=== PATIENT | female | born 1955 | race Caucasian/White ===

== ENCOUNTER 2016-11-24 15:42 | Observation (INO) | payer OTHER ==
[2016-11-24] MEDS ORDERED: Sodium Chloride 0.9% 10 ML Syringe FLUSH PRN ×2 (15:58→19:19)
[2016-11-24] MEDS ORDERED: Sodium Chloride 0.9% 2.5 ML Syringe FLUSH PRN ×2 (15:58→19:19)
[2016-11-24] MEDS ORDERED: Famotidine 20 MG/2 ML SDV IVPUSH ONE (15:58)
[2016-11-24] MEDS ORDERED: Ketorolac 30 MG/ML SDV IVPUSH ONE (15:58)
[2016-11-24] MEDS ORDERED: Nitroglycerin 2% Oint 1 GM UD Packet TOP ONE (15:58)
[2016-11-24] MEDS ORDERED: Alum Hydrox/Mag Hydrox/Simeth 15 ML, Metoclopramide 5 MG, Lidocaine 2% 5 ML PO ONE ×3 (15:58)
--- NOTE | 2016-11-24 16:08 | EDM.PDOC ---
ED HPI GENERAL MEDICAL PROBLEM - General Chief Complaint: Cardiovascular Problem Stated Complaint: CHEST PAIN Time Seen by Provider: 11/24/16 16:01 Source of Information: Reports: Patient History Limitations: Reports: No Limitations - History of Present Illness INITIAL COMMENTS - FREE TEXT/NARRATIVE: History of present illness: [Patient is a 61-year-old female that presents to the emergency room today with complaints of shortness of breath, palpitations, "pulsation in my neck", and fatigue for the last several weeks. Reports that she saw her primary care provider Agueda Perales at [facility] and was told that she had a "block" and if her shortness of breath continued or worse and that she was to present to the emergency room. Her primary care provider did schedule for her to see Dr. Moore to have a stress test done. Her primary care provider was also monitoring her blood pressure which she reports has been running 140s over 80s but does not take any blood pressure medications for it at this time. Patient reports that this afternoon her symptoms did become worse and felt she needed to be evaluated. Patient is concerned that this could be cardiac related, TSH related, are due to a long flight that she had a week prior. Patient reports that her sister a month ago due to a heart attack. Has had several family members also I from cardiac related disease. Patient does have a past history of smoking. She reports she quit approximately 1-1/2 months ago. Was a half a pack to pack per day smoker for 30 years. Review of systems: As per history of present illness and below otherwise all systems reviewed and negative. Past medical history: As per history of present illness and as reviewed below otherwise noncontributory. Surgical history: As per history of present illness and as reviewed below otherwise noncontributory. Social history: No reported history of drug or alcohol abuse. Family history: As per history of present illness and as reviewed below otherwise noncontributory. Physical exam: Toxic appearing female. Appears teary-eyed. Able to speak in full sentences and answers questions appropriately. HEENT: Atraumatic, normocephalic, pupils reactive, negative for conjunctival pallor or scleral icterus, mucous membranes moist, throat clear, neck supple, nontender, trachea midline. Lungs: Clear to auscultation, breath sounds equal bilaterally, chest nontender. Heart: S1S2, regular, negative for clicks, rubs, + bilateral JVD. Abdomen: Soft, nondistended, nontender. Negative for masses or hepatosplenomegaly. Negative for costovertebral tenderness. Pelvis: Stable nontender. Genitourinary: Deferred. Rectal: Deferred. Extremities: Atraumatic, negative for cords or calf pain. Neurovascular unremarkable. Neuro: Awake, alert, oriented. Cranial nerves II through XII unremarkable. Cerebellum unremarkable. Motor and sensory unremarkable throughout. Exam nonfocal. 1600-consult to Dr. Moore will come and evaluate patient at bedside in ER. Dr. Moore here added a BNP will admit to Dr. Thakur Diagnostics: [BNP, CBC, CMP, troponin, UA, d-dimer, EKG, 2 view chest x-ray] Therapeutics: [IV, hospital monitor, O2, aspirin, GI cocktail, Pepcid] Impression: [Palpitations] Plan: [Admit to observation Dr. Thakur] Definitive disposition and diagnosis as appropriate pending reevaluation and review of above. Onset: Other (Several weeks) Duration: Other (Several weeks but worse today) Location: Reports: Neck Quality: Reports: Pressure Severity: Moderate Improves with: Reports: None Worsens with: Reports: None Associated Symptoms: Reports: Other (Shortness of breath/perceived) Throat Pain Score (Numeric/FACES): 4 - Related Data Allergies Allergy/AdvReac Type Severity Reaction Status Date / Time Penicillins Allergy Rash Verified 11/24/16 15:46 Home Meds: Home Meds Aspirin 1 tab 11/24/16 [History] ED ROS GENERAL - Review of Systems Review Of Systems: See Below (See history of present illness) ED EXAM, GENERAL - Physical Exam Exam: See Below (See history of present illness) EKG INTERPRETATION EKG Date: 11/24/16 Time: 15:45 Rhythm: Other (Left bundle branch block with ventricular trigeminy) Comparison: NA - No Prior EKG EKG Interpretation Comments: Dr. Moore consult to Course - Vital Signs Last Recorded V/S: Last Vital Signs Temp 36.4 C 11/24/16 15:46 Pulse 77 11/24/16 15:46 Resp 16 11/24/16 15:46 BP 163/92 H 11/24/16 15:46 Pulse Ox 97 11/24/16 15:46 - Orders/Labs/Meds Orders: Active Orders 24 hr Category Date Time Status EKG Documentation Completion [RC] STAT Care 11/24/16 15:59 Active Chest 2V [CR] Stat Exams 11/24/16 15:58 Taken B-TYPE NATRIURETIC PEPTIDE,BNP [CHEM] Stat Lab 11/24/16 17:53 Ordered Labs: Laboratory Tests 11/24/16 11/24/16 11/24/16 Range/Units 15:59 15:59 15:59 WBC 9.11 (4.0-11.0) K/uL RBC 4.65 (4.30-5.90) M/uL Hgb 14.3 (12.0-16.0) g/dL Hct 43.2 (36.0-46.0) % MCV 92.9 (80.0-98.0) fL MCH 30.8 (27.0-32.0) pg MCHC 33.1 (31.0-37.0) g/dL RDW Std Deviation 45.6 (28.0-62.0) fl RDW Coeff of Domenic 14 (11.0-15.0) % Plt Count 238 (150-400) K/uL MPV 9.60 (7.40-12.00) fL Neut % (Auto) 50.8 (48.0-80.0) % Lymph % (Auto) 36.3 (16.0-40.0) % Bath % (Auto) 11.1 (0.0-15.0) % Eos % (Auto) 1.5 (0.0-7.0) % Baso % (Auto) 0.3 (0.0-1.5) % Neut # (Auto) 4.6 (1.4-5.7) K/uL Lymph # (Auto) 3.3 H (0.6-2.4) K/uL Bath # (Auto) 1.0 H (0.0-0.8) K/uL Eos # (Auto) 0.1 (0.0-0.7) K/uL Baso # (Auto) 0.0 (0.0-0.1) K/uL Nucleated RBC % 0.0 /100WBC Nucleated RBCs # 0 K/uL D-Dimer, Quantitative 0.25 (0.0-0.52) mg/LFEU Sodium 141 (136-146) mmol/L Potassium 4.1 (3.5-5.1) mmol/L Chloride 108 (98-110) mmol/L Carbon Dioxide 24 (21-31) mmol/L BUN 15 (6.0-23.0) mg/dL Creatinine 0.7 (0.6-1.5) mg/dL Est Cr Clr Drug Dosing TNP Estimated GFR (MDRD) > 60.0 ml/min Glucose 93 (60-110) mg/dL Calcium 9.3 (8.8-10.8) mg/dL Total Bilirubin 0.4 (0.1-1.5) mg/dL AST 18 (5-40) IU/L ALT 24 (8-54) IU/L Alkaline Phosphatase 79 (40-150) Troponin I (0.0-0.29) NG/ML Total Protein 7.1 (6.0-8.0) g/dL Albumin 4.2 (3.4-4.8) g/dL Globulin 2.9 (2.0-3.5) g/dL Albumin/Globulin Ratio 1.4 (1.3-2.8) Amylase 37 (10-90) U/L Lipase 15 (7-80) U/L Urine Color Urine Appearance Urine pH (5.0-8.0) Ur Specific [place] (1.001-1.035) Urine Protein (NEGATIVE) mg/dL Urine Glucose (UA) (NEGATIVE) mg/dL Urine Ketones (NEGATIVE) mg/dL Urine Occult Blood (NEGATIVE) Urine Nitrite (NEGATIVE) Urine Bilirubin (NEGATIVE) Urine Urobilinogen (<2.0) EU/dL Ur Leukocyte Esterase (NEGATIVE) Urine RBC (0-2/HPF) Urine WBC (0-5/HPF) Ur Epithelial Cells (NONE-FEW) Urine Bacteria (NEGATIVE) 11/24/16 11/24/16 Range/Units 15:59 16:45 WBC (4.0-11.0) K/uL RBC (4.30-5.90) M/uL Hgb (12.0-16.0) g/dL Hct (36.0-46.0) % MCV (80.0-98.0) fL MCH (27.0-32.0) pg MCHC (31.0-37.0) g/dL RDW Std Deviation (28.0-62.0) fl RDW Coeff of Domenic (11.0-15.0) % Plt Count (150-400) K/uL MPV (7.40-12.00) fL Neut % (Auto) (48.0-80.0) % Lymph % (Auto) (16.0-40.0) % Bath % (Auto) (0.0-15.0) % Eos % (Auto) (0.0-7.0) % Baso % (Auto) (0.0-1.5) % Neut # (Auto) (1.4-5.7) K/uL Lymph # (Auto) (0.6-2.4) K/uL Bath # (Auto) (0.0-0.8) K/uL Eos # (Auto) (0.0-0.7) K/uL Baso # (Auto) (0.0-0.1) K/uL Nucleated RBC % /100WBC Nucleated RBCs # K/uL D-Dimer, Quantitative (0.0-0.52) mg/LFEU Sodium (136-146) mmol/L Potassium (3.5-5.1) mmol/L Chloride (98-110) mmol/L Carbon Dioxide (21-31) mmol/L BUN (6.0-23.0) mg/dL Creatinine (0.6-1.5) mg/dL Est Cr Clr Drug Dosing Estimated GFR (MDRD) ml/min Glucose (60-110) mg/dL Calcium (8.8-10.8) mg/dL Total Bilirubin (0.1-1.5) mg/dL AST (5-40) IU/L ALT (8-54) IU/L Alkaline Phosphatase (40-150) Troponin I < 0.10 (0.0-0.29) NG/ML Total Protein (6.0-8.0) g/dL Albumin (3.4-4.8) g/dL Globulin (2.0-3.5) g/dL Albumin/Globulin Ratio (1.3-2.8) Amylase (10-90) U/L Lipase (7-80) U/L Urine Color YELLOW Urine Appearance CLEAR Urine pH 5.5 (5.0-8.0) Ur Specific [place] <= 1.005 (1.001-1.035) Urine Protein NEGATIVE (NEGATIVE) mg/dL Urine Glucose (UA) NEGATIVE (NEGATIVE) mg/dL Urine Ketones NEGATIVE (NEGATIVE) mg/dL Urine Occult Blood TRACE-INTACT (NEGATIVE) Urine Nitrite NEGATIVE (NEGATIVE) Urine Bilirubin NEGATIVE (NEGATIVE) Urine Urobilinogen 0.2 (<2.0) EU/dL Ur Leukocyte Esterase NEGATIVE (NEGATIVE) Urine RBC 0-1 (0-2/HPF) Urine WBC 0-1 (0-5/HPF) Ur Epithelial Cells RARE (NONE-FEW) Urine Bacteria RARE (NEGATIVE) Meds: Medications Discontinued Medications Generic Name Dose Route Start Last Admin Trade Name Freq PRN Reason Stop Dose Admin Aspirin 324 mg 11/24/16 15:58 11/24/16 16:32 Aspirin PO 11/24/16 15:59 Not Given ONETIME ONE Al Hydroxide/Mg Hydroxide 15 0 ml 11/24/16 15:58 11/24/16 16:23 ml/ Metoclopramide HCl 5 mg/ PO 11/24/16 15:59 1 each Lidocaine HCl 5 ml ONETIME ONE Administration Famotidine 20 mg 11/24/16 15:58 11/24/16 16:20 Pepcid IVPUSH 11/24/16 15:59 20 mg ONETIME ONE Administration Sodium Chloride 1,000 mls @ 999 mls/hr 11/24/16 16:12 11/24/16 16:16 Normal Saline IV 11/24/16 17:12 999 mls/hr STAT ONE Administration Ketorolac Tromethamine 30 mg 11/24/16 15:58 11/24/16 16:14 Toradol IVPUSH 11/24/16 15:59 30 mg ONETIME ONE Administration Nitroglycerin 0.5 gm 11/24/16 15:58 Nitro-Bid 2% TOP 11/24/16 15:59 ONETIME ONE Sodium Chloride 10 ml 11/24/16 15:58 Saline Flush FLUSH ASDIRECTED PRN Keep Vein Open Sodium Chloride 2.5 ml 11/24/16 15:58 Saline Flush FLUSH ASDIRECTED PRN Keep Vein Open Departure - Departure Time of Disposition: 18:02 Disposition: Refer to Observation Condition: Good Clinical Impression: Palpitations Forms: ED Department Discharge - My Orders Last 24 Hours: My Active Orders 11/24/16 15:58 Chest 2V [CR] Stat 11/24/16 15:59 EKG Documentation Completion [RC] STAT 11/24/16 17:53 B-TYPE NATRIURETIC PEPTIDE,BNP [CHEM] Stat - Assessment/Plan Last 24 Hours: My Active Orders 11/24/16 15:58 Chest 2V [CR] Stat 11/24/16 15:59 EKG Documentation Completion [RC] STAT 11/24/16 17:53 B-TYPE NATRIURETIC PEPTIDE,BNP [CHEM] Stat
[2016-11-24] MEDS: Aspirin 81 MG Tab.Chew PO ONE ×2 (16:11→16:32)
[2016-11-24] MEDS ORDERED: Sodium Chloride 0.9% 1,000 ML IV ONE (16:12)
[2016-11-24 16:27] LABS: CHLORIDE,CL 108 mmol/L (98-110); SODIUM,NA 141 mmol/L (136-146)
--- NOTE | 2016-11-24 19:00 | CONS ---
DATE OF CONSULTATION: DATE OF : 1955 PRIMARY CARE PHYSICIAN: None PCP REASON FOR CONSULTATION: Shortness of breath, fluttering sensation, and choking. HISTORY OF PRESENT ILLNESS: This is a 61-year-old female with a history of thyroid problem, probably dyslipidemia, who presented to the emergency room due to worsening fluttering sensation, throbbing, and choking sensation. She had been in her usual state of health until 3 weeks to a month ago she started having fluttering sensation along with throbbing sensation as well as choking in her throat. She denies chest pain and the choking sensation was not radiating. It started off with intermittent symptoms. However, it became more continuous today. She was seen by primary care in [place] like a week ago. She was told that she has possibly a block in her heart EKG, and she is scheduled for a stress test. She stated that she becomes short of breath lately, only by walking distance or climbing two flights of stairs. Before that, she may get slight shortness of breath but not very bad. She has some leg swelling from time to time and she did not feel comfortable when she lay flat but no PND, no passing out. She also had a history of reflux disease which she feels like some burning chest pain. PAST MEDICAL HISTORY: Including hyperlipidemia. SOCIAL HISTORY: Former smoker. Daily alcohol use. No drug use. 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 FAMILY HISTORY: Her father had a history of heart attack at 70. Her mother had a history of brain aneurysm. Her sister of a heart attack at 54. ALLERGIES: Penicillin. REVIEW OF SYSTEMS: Except as indicated in HPI, otherwise has been negative. MEDICATIONS: She does not take any medication at home. PHYSICAL EXAMINATION: VITAL SIGNS: Blood pressure is 163/92, temperature is 36.4, heart rate is 77, O2 saturation is 97 on room air, and respiratory rate is 16. HEENT: No pallor, no jaundice. JVD is positive. LUNGS: Very minimal crackles. No wheezing. ABDOMEN: Soft, nontender. Bowel sounds present. No hepatosplenomegaly. Hepatojugular reflux is positive. EXTREMITIES: Legs 1+ edema, both sides. INVESTIGATIONS: CBC show WBC of 9, hematocrit 43, and platelet 238. D-dimer 0.25. Sodium 141, potassium 4.1, chloride 108, bicarb 24, BUN 15, creatinine 0.7. Troponin is negative x1. EKG showed sinus rhythm with left bundle-branch block pattern with PVCs. BNP is still pending. ASSESSMENT: This is a 61-year-old female with history of hyperlipidemia, thyroid problem, who presented to the hospital at this time due to shortness of breath, fluttering in her chest, as well as choking in her throat. On physical examination, she has a positive JVD that could also be from heart failure as well as a severe TR. I would recommend to do an echocardiogram and also cycle cardiac enzymes. She should get a stress test done as well. It depends on her EF on an echocardiogram. I will wait for BNP. If it is elevated, I would try to treat her with low-dose Lasix and her blood pressure needs to be controlled as well. HENRRY / CASSIA /[id number]
[2016-11-24] MEDS ORDERED: Acetaminophen 325 MG Tab PO PRN (19:19)
[2016-11-24] MEDS ORDERED: Ondansetron 4 MG Tab.DIS PO PRN (19:19)
[2016-11-24] MEDS ORDERED: Furosemide 20 MG/2 ML VIAL IVPUSH ONE (19:34)
[2016-11-24] MEDS ORDERED: Magnesium Sulfate/Water 4 GM in Premix Bag 1 BAG IV ONE (19:55)
--- NOTE | 2016-11-24 20:01 | PCM.HP ---
H&P History of Present Illness - General Date of Service: 11/24/16 Admit Problem/Dx: Admission Diagnosis/Problem Admission Diagnosis/Problem Palpitations Source of Information: Patient - History of Present Illness Initial Comments - Free Text/Narative: This is a 61-year-old female who is being admitted for observation secondary to two-week history of progressive worsening of her shortness of breath, feeling that her throat is being compressed/closed, as well as the feeling that her blood vessels are engorged. Patient initially thought it was her thyroid as she does have a history of thyroid nodules. However, as his symptoms began to get worse she felt that she needed to come in and to be reassessed. Patient has been noted to have high blood pressure and her primary care clinic. At this point in time she's not on any high blood pressure medication. Patient denies any chest pain. Patient denies any weakness. She denies any recent fevers, nausea, vomiting, diarrhea, constipation. He medication patient presently on is a baby aspirin, acetaminophen as needed and [id number] supplements. Patient is not on any thyroid related medication. Patient was told that she needed to see Dr. Moore for possible stress test and was supposed to have scheduled however these symptoms arose. Dr. Moore did see the patient today, he feels that this might be heart failure, as such she would like to have a BNP done if it is elevated he would like to start on a small dose of IV Lasix, as well as control her blood pressure as well as get a echocardiogram. And then an outpatient cardiac stress test. Patient does state that she recently traveled 3 weeks ago on a long flight. Patient stated that she has had some bilateral pitting edema. Patien stated that she does not recall having any severe shortness of breath, dyspnea right after the plane ride. Patient denies any blood clotting issues. Onset of Symptoms: Reports: Gradual Throat Pain Score (Numeric/FACES): 4 - Related Data Allergies/Adverse Reactions: Allergies Allergy/AdvReac Type Severity Reaction Status Date / Time Penicillins Allergy Rash Verified 11/24/16 15:46 Home Medications: Home Meds Aspirin 1 tab 11/24/16 [History] Past Medical History HEENT History: Reports: Other (See Below) Other HEENT History: eyeritis,right Cardiovascular History: Reports: Heart Murmur, High Cholesterol Respiratory History: Reports: None, SOB Gastrointestinal History: Reports: GERD, Hiatal Hernia Genitourinary History: Reports: None, UTI, Recurrent MANUAL WRITER History: Reports: Fibroids, Other (See Below) Other OB/BYN History: uterine endoplasty Musculoskeletal History: Reports: Arthritis Neurological History: Reports: Migraines Psychiatric History: Reports: Anxiety, Depression Endocrine/Metabolic History: Reports: Other (See Below) Other Endocrine/Metabolic History: thyroid nodules Hematologic History: Reports: None Dermatologic History: Reports: Psoriasis - Infectious Disease History Infectious Disease History: Reports: Chicken Pox, Influenza, Measles - Past Surgical History Respiratory Surgical History: Reports: None GI Surgical History: Reports: Appendectomy, Colonoscopy, EGD, Hernia, Abdominal Musculoskeletal Surgical History: Reports: None Social & Family History - Family History Cardiac: Reports: CAD, RI - Tobacco Use Smoking Status *Q: Former Smoker Years of Tobacco use: 30 Packs/Tins Daily: 0.5 Used Tobacco, but Quit: Yes Month Tobacco Last Used: 09/2016 Tobacco Use Comment: on and off smoking for the past 30 yrs but quit 1 month ago Second Hand Smoke Exposure: No - Caffeine Use Caffeine Use: Reports: Coffee - Recreational Drug Use Recreational Drug Use: No H&P Review of Systems - Review of Systems: Review Of Systems: ROS reveals no pertinent complaints other than HPI. Exam - Exam Exam: See Below - Vital Signs Vital Signs: Last Vital Signs Temp 36.4 C 11/24/16 15:46 Pulse 67 11/24/16 18:20 Resp 16 11/24/16 18:20 BP 143/82 H 11/24/16 18:20 Pulse Ox 94 L 11/24/16 18:20 Weight: 117.7 kg - Exam General: Alert, Oriented HEENT: Conjunctiva Clear Neck: Supple (Very mild JVD) Lungs: Clear to Auscultation, Normal Respiratory Effort Cardiovascular: Regular Rate, Regular Rhythm GI/Abdominal Exam: Normal Bowel Sounds, Soft Extremities: Normal Inspection, Normal Range of Motion, Non-Tender, No Pedal Edema - Patient Data Result Diagrams: 11/24/16 15:59 11/24/16 15:59 *Q Meaningful Use (ADM) - VTE *Q VTE Criteria *Q: - Stroke *Q Stroke Criteria *Q: - AMI *Q AMI Criteria *Q: Problem List Initiated/Reviewed/Updated: Yes Orders Last 24hrs: Active Orders 24 hr Category Date Time Status Patient Status [ADT] Routine ADT 11/24/16 19:19 Active Cardiac Monitoring [RC] CONTINUOUS Care 11/24/16 19:21 Active Height and Weight [RC] UPON Care 11/24/16 19:19 Active Intake and Output [RC] QSHIFT Care 11/24/16 19:20 Active Notify Provider Vital Signs [RC] ASDIRECTED Care 11/24/16 19:21 Active Oxygen Therapy [RC] PRN Care 11/24/16 19:19 Active Pulse Oximetry [RC] PRN Care 11/24/16 19:20 Active Telemetry Monitoring [Cardiac Monitoring] [RC] . Care 11/24/16 19:55 Ordered DIRECTED Up With Assistance [RC] ASDIRECTED Care 11/24/16 19:19 Active VTE/DVT Education [RC] PER UNIT ROUTINE Care 11/24/16 19:19 Active Vital Signs [RC] Q4H Care 11/24/16 19:19 Active 2 Gram Sodium Diet [DIET] Diet 11/24/16 Breakfast Active Echo 2D wo Cont [US] Routine Exams 11/24/16 19:36 Ordered BASIC METABOLIC PANEL,BMP [CHEM] AM Lab 11/25/16 05:11 Ordered CBC WITH AUTO DIFF [HEME] AM Lab 11/25/16 05:11 Ordered MAGNESIUM [CHEM] AM Lab 11/25/16 05:11 Ordered MAGNESIUM [CHEM] Routine Lab 11/24/16 19:33 Ordered TROPONIN I [CHEM] Q6H Lab 11/24/16 22:00 Ordered TROPONIN I [CHEM] Q6H Lab 11/25/16 04:00 Ordered Acetaminophen [Tylenol] Med 11/24/16 19:19 Active 650 mg PO Q4H PRN Enoxaparin [Lovenox] Med 11/24/16 19:30 Active 40 mg SUBCUT DAILY Magnesium Sulfate/Water [Magnesium Sulfate 4 GM in Med 11/24/16 19:55 Ordered Water 100 ML] 4 gm Premix Bag 1 bag IV ONETIME Ondansetron [Zofran ODT] Med 11/24/16 19:19 Active 4 mg PO Q4H PRN Ramipril [Altace] Med 11/24/16 21:00 Active 2.5 mg PO BID Sodium Chloride 0.9% [Saline Flush] Med 11/24/16 19:19 Active 10 ml FLUSH ASDIRECTED PRN Sodium Chloride 0.9% [Saline Flush] Med 11/24/16 19:19 Active 2.5 ml FLUSH ASDIRECTED PRN Peripheral IV Insertion Adult [OM.PC] Routine Oth 11/24/16 19:19 Ordered Saline Lock Insert [OM.PC] Routine Oth 11/24/16 19:19 Ordered Resuscitation Status Routine Resus Stat 11/24/16 19:19 Ordered Medication Orders Acetaminophen (Tylenol) 650 mg PO Q4H PRN PRN Reason: Pain (Mild 1-3)/fever Enoxaparin Sodium (Lovenox) 40 mg SUBCUT DAILY MAURISIO Magnesium Sulfate 4 gm/ Premix 100 mls @ 25 mls/hr IV ONETIME ONE Stop: 11/24/16 23:54 Ondansetron HCl (Zofran Odt) 4 mg PO Q4H PRN PRN Reason: nausea, able to take PO Ramipril (Altace) 2.5 mg PO BID MAURISIO Sodium Chloride (Saline Flush) 10 ml FLUSH ASDIRECTED PRN PRN Reason: Keep Vein Open Sodium Chloride (Saline Flush) 2.5 ml FLUSH ASDIRECTED PRN PRN Reason: Keep Vein Open Assessment/Plan Comment:: Assessment/plan #1. Terms of breath, elevated JVD, cough, pitting edema, palpitations was likely etiology at this point in time is heart failure. This is based upon the patient's history and physical examination conducted today as well as an elevated BNP of about 100 seen on patient's laboratories. Other etiologies to consider is possibly enlargement of her thyroid, PE, RI. All of which are unlikely since the patient does not have an elevated d-dimer, thyroid nodules do seem to be stable, and EKG did not show any signs of RI. -Admit patient for observation -with an elevated BNP we shall follow cardiology's recommendations small dose of IV Lasix 20 mg one-time dose has been given, I've also started the patient on 2.5 mg twice a day of ramipril -2-D echo to be done tomorrow -CBC, BMP, magnesium ordered for tomorrow -Tropes trended 3 first set of tropes is negative -Patient will be on fluid restriction as well as a low-sodium diet
[2016-11-24] MEDS: Enoxaparin 40 MG/0.4 ML Syringe SUBCUT SCH (20:07)
[2016-11-25 04:35] LABS: CHLORIDE,CL 108 mmol/L (98-110); SODIUM,NA 141 mmol/L (136-146)
[2016-11-25] MEDS: Enoxaparin 40 MG/0.4 ML Syringe SUBCUT SCH (08:14)
--- NOTE | 2016-11-25 12:31 | PCM.DCSUM1 ---
Discharge Summary - Hospital Course Brief History: she was admitted with feelings of upper chest tightness, hypertension and a feeling of bounding pulses. She was thought to have congestive heart failure. - Discharge Data Discharge Date: 11/25/16 Discharge Disposition: Home, Self-Care 01 Condition: Fair - Patient Summary/Data Hospital Course: she was started on ramipril and lasix. She feels asymptomatic at discharge. serial troponins were negative. Echo was not available during this admission echo and cardiac stress testing have been ordered to be done as an outpatient. these orders were placed by DR Gandhi before admission. - Discharge Plan Home Medications: Home Meds Aspirin 325 mg PO DAILY 11/24/16 [History] Patient Handouts: Palpitations, [id number] Referrals: Mara Osullivan DO [Physician] - (Call the clinic on Sunday to set up a follow-up appointment with Dr. Osullivan.) - Patient Data Vitals - Most Recent: Last Vital Signs Temp 98.5 F 11/25/16 09:40 Pulse 59 L 11/25/16 09:40 Resp 16 11/25/16 09:40 BP 149/62 H 11/25/16 09:58 Pulse Ox 94 L 11/25/16 09:40 Weight - Most Recent: 117.7 kg I&O - Last 24 hours: Intake & Output 11/24/16 11/25/16 11/25/16 22:59 06:59 14:59 Intake Total 700 Output Total 2900 Balance -2200 Lab Results - Last 24 hrs: Laboratory Results - last 24 hr 11/24/16 11/25/16 11/25/16 Range/Units 22:01 04:04 04:04 WBC 8.23 (4.0-11.0) K/uL RBC 4.38 (4.30-5.90) M/uL Hgb 13.7 (12.0-16.0) g/dL Hct 40.7 (36.0-46.0) % MCV 92.9 (80.0-98.0) fL MCH 31.3 (27.0-32.0) pg MCHC 33.7 (31.0-37.0) g/dL RDW Std Deviation 45.8 (28.0-62.0) fl RDW Coeff of Domenic 14 (11.0-15.0) % Plt Count 215 (150-400) K/uL MPV 9.40 (7.40-12.00) fL Neut % (Auto) 46.4 L (48.0-80.0) % Lymph % (Auto) 41.8 H (16.0-40.0) % Frontier % (Auto) 9.8 (0.0-15.0) % Eos % (Auto) 1.8 (0.0-7.0) % Baso % (Auto) 0.2 (0.0-1.5) % Neut # (Auto) 3.8 (1.4-5.7) K/uL Lymph # (Auto) 3.4 H (0.6-2.4) K/uL Frontier # (Auto) 0.8 (0.0-0.8) K/uL Eos # (Auto) 0.2 (0.0-0.7) K/uL Baso # (Auto) 0.0 (0.0-0.1) K/uL Nucleated RBC % 0.0 /100WBC Nucleated RBCs # 0 K/uL Sodium 141 (136-146) mmol/L Potassium 3.7 (3.5-5.1) mmol/L Chloride 108 (98-110) mmol/L Carbon Dioxide 23 (21-31) mmol/L BUN 12 (6.0-23.0) mg/dL Creatinine 0.7 (0.6-1.5) mg/dL Est Cr Clr Drug Dosing 82.07 mL/min Estimated GFR (MDRD) > 60.0 ml/min Glucose 98 (60-110) mg/dL Calcium 8.7 L (8.8-10.8) mg/dL Magnesium 2.2 (1.5-2.3) mEq/L Troponin I < 0.10 (0.0-0.29) NG/ML TSH 3rd Generation 1.55 (0.47-5.0) uIU/mL 11/25/16 Range/Units 04:04 WBC (4.0-11.0) K/uL RBC (4.30-5.90) M/uL Hgb (12.0-16.0) g/dL Hct (36.0-46.0) % MCV (80.0-98.0) fL MCH (27.0-32.0) pg MCHC (31.0-37.0) g/dL RDW Std Deviation (28.0-62.0) fl RDW Coeff of Domenic (11.0-15.0) % Plt Count (150-400) K/uL MPV (7.40-12.00) fL Neut % (Auto) (48.0-80.0) % Lymph % (Auto) (16.0-40.0) % Frontier % (Auto) (0.0-15.0) % Eos % (Auto) (0.0-7.0) % Baso % (Auto) (0.0-1.5) % Neut # (Auto) (1.4-5.7) K/uL Lymph # (Auto) (0.6-2.4) K/uL Frontier # (Auto) (0.0-0.8) K/uL Eos # (Auto) (0.0-0.7) K/uL Baso # (Auto) (0.0-0.1) K/uL Nucleated RBC % /100WBC Nucleated RBCs # K/uL Sodium (136-146) mmol/L Potassium (3.5-5.1) mmol/L Chloride (98-110) mmol/L Carbon Dioxide (21-31) mmol/L BUN (6.0-23.0) mg/dL Creatinine (0.6-1.5) mg/dL Est Cr Clr Drug Dosing mL/min Estimated GFR (MDRD) ml/min Glucose (60-110) mg/dL Calcium (8.8-10.8) mg/dL Magnesium (1.5-2.3) mEq/L Troponin I < 0.10 (0.0-0.29) NG/ML TSH 3rd Generation (0.47-5.0) uIU/mL Med Orders - Current: Current Medications Acetaminophen (Tylenol) 650 mg PO Q4H PRN PRN Reason: Pain (Mild 1-3)/fever Enoxaparin Sodium (Lovenox) 40 mg SUBCUT DAILY [facility] Last Admin: 11/25/16 08:14 Dose: 40 mg Ondansetron HCl (Zofran Odt) 4 mg PO Q4H PRN PRN Reason: nausea, able to take PO Ramipril (Altace) 2.5 mg PO BID MAURISIO Last Admin: 11/25/16 09:58 Dose: 2.5 mg Sodium Chloride (Saline Flush) 10 ml FLUSH ASDIRECTED PRN PRN Reason: Keep Vein Open Sodium Chloride (Saline Flush) 2.5 ml FLUSH ASDIRECTED PRN PRN Reason: Keep Vein Open Discontinued Medications Aspirin (Aspirin) 324 mg PO ONETIME ONE Stop: 11/24/16 15:59 Last Admin: 11/24/16 16:32 Dose: Not Given Al Hydroxide/Mg Hydroxide 15 ml/ Metoclopramide HCl 5 mg/Lidocaine HCl 5 ml 0 ml PO ONETIME ONE Stop: 11/24/16 15:59 Last Admin: 11/24/16 16:23 Dose: 1 each Famotidine (Pepcid) 20 mg IVPUSH ONETIME ONE Stop: 11/24/16 15:59 Last Admin: 11/24/16 16:20 Dose: 20 mg Furosemide (Lasix) 20 mg IVPUSH NOW ONE Stop: 11/24/16 19:35 Last Admin: 11/24/16 20:08 Dose: 20 mg Sodium Chloride (Normal Saline) 1,000 mls @ 999 mls/hr IV STAT ONE Stop: 11/24/16 17:12 Last Admin: 11/24/16 16:16 Dose: 999 mls/hr Magnesium Sulfate 4 gm/ Premix 100 mls @ 25 mls/hr IV ONETIME ONE Stop: 11/24/16 23:54 Last Admin: 11/24/16 20:07 Dose: 25 mls/hr Ketorolac Tromethamine (Toradol) 30 mg IVPUSH ONETIME ONE Stop: 11/24/16 15:59 Last Admin: 11/24/16 16:14 Dose: 30 mg Nitroglycerin (Nitro-Bid 2%) 0.5 gm TOP ONETIME ONE Stop: 11/24/16 15:59 Last Admin: 11/24/16 21:22 Dose: Not Given Sodium Chloride (Saline Flush) 10 ml FLUSH ASDIRECTED PRN PRN Reason: Keep Vein Open Sodium Chloride (Saline Flush) 2.5 ml FLUSH ASDIRECTED PRN PRN Reason: Keep Vein Open *Q Meaningful Use (DIS) - VTE *Q VTE Criteria *Q: - Stroke *Q Stroke Criteria *Q: - AMI *Q AMI Criteria *Q:
[2016-11-25 13:23] VITALS: BP 166/76
--- NOTE | 2016-11-27 11:06 | CR ---
EXAM DATE: 11/24/16 PATIENT'S AGE: 61 Patient: ANASTASIYA COE Facility: [place], [place] Site . Site : [id number] Study: XRay Chest [id number] 4:47:37 PM Ordering Physician: Doctor Hu Final Report: HISTORY: Chest tightness, palpitations, pain in throat. FINDINGS: PA and lateral chest radiograph demonstrates mild cardiomegaly. Pulmonary vasculature is free of cephalization. There is mild elevation of the anterior right hemidiaphragm. Linear atelectasis or scarring in the right suprahilar and left lateral mid lung. No pleural effusion is seen. IMPRESSION: 1. Mild cardiomegaly without CHF. 2. Linear atelectasis or scarring in the right suprahilar and left mid bladder lung. 3. Mild elevation of the right anterior hemidiaphragm. Dictated by Vee Watts MD @ 11/24/2016 5:23:59 PM Dictated by: Vee Watts MD @ 11/24/2016 17:24:04 (Electronic Signature) Report Signed by Proxy. [facility]
== END 2016-11-25 13:22 | disposition home or self-care (01) ==
LOC: MW.ED 15:42 → MW.MS 18:02
PROVIDERS: ADMIT Family Medicine; ATTEND Family Medicine
DX: R06.02 Shortness of breath (principal); R07.89 Other chest pain; I10 Essential (primary) hypertension; M19.90 Unspecified osteoarthritis, unspecified site; Z79.82 Long term (current) use of aspirin; Z88.0 Allergy status to penicillin; Z87.440 Personal history of urinary (tract) infections; Z87.891 Personal history of nicotine dependence; Z82.49 Family history of ischemic heart disease and other diseases of the circulatory system; Z90.49 Acquired absence of other specified parts of digestive tract; Z98.890 Other specified postprocedural states
CPT/HCPCS: 36415; 71020; 80048; 80053; 81001; 82150; 83690; 83735; 83880; 84443; 84484; 85025; 85379; 93005; 96361; 96365; 96366; 96372; 96375; 99285; A9270; G0378; J1650; J1885; J3475; J7040; 96374; 99283